=== PATIENT | female | born 1960 | race African-American/Black ===

== ENCOUNTER 2017-09-24 18:08 | Observation (INO) | payer OTHER ==
[2017-09-24] MEDS ORDERED: Morphine 4 MG/ML VIAL ONE (18:42)
[2017-09-24] MEDS ORDERED: Ondansetron HCl/PF 4 MG/2 ML Vial ONE (18:42)
[2017-09-24 18:48] LABS: Hemoglobin 12.5 g/dL (12.0-16.0); Mean Corpuscular HGB CONC 30.7 g/dL (32.0-36.0); Mean Corpuscular Hemoglobin 23.2 pg (27.0-31.0); Mean Corpuscular Volume 75.6 fL (78.0-98.0); Platelet Count 226 thou/uL (130-400); RBC Distribution Width 21.7 % (11.5-14.5); Red Blood Cell (RBC) Count 5.38 mill/uL (4.20-5.40); White Blood Cell (WBC) Count 8.7 thou/uL (4.8-10.8)
--- NOTE | 2017-09-24 19:02 | RAD ---
FRONTAL VIEW CHEST: 09/24/17 INDICATION: Chest pain. No prior comparison. FINDINGS: There is linear density at the lateral aspect of the inferior left chest which may relate to atelecta sis or parenchymal scar. The cardiac silhouette and mediastinal structures are enlarged, and accentua leatha by portable technique. There is vascular calcifications. No lobar consolidation, effusion or disc rete pneumothorax. IMPRESSION: Accentuated cardiomediastinal silhouette. Linear density of the inferolateral left hemithorax which may be related to scar or volume loss. POS: SETH
[2017-09-24 19:08] LABS: ALT (SGPT) 17 U/L (8-55); AST (SGOT) 18 U/L (5-34); Albumin 4.1 g/dL (3.5-5.0); Alkaline Phosphatase 87 U/L (40-150); Anion Gap 16 mmol/L (10-20); BUN (Urea Nitrogen) 11 mg/dL (9.8-20.1); Bilirubin, Total 0.3 mg/dL (0.2-1.2); CK (CPK) 36 U/L (29-168); Calc. Creatinine Clearance 0 mL/min (70-130); Calcium 9.5 mg/dL (7.8-10.44); Carbon Dioxide 22 mmol/L (22-29); Chloride 105 mmol/L (98-107); Estimated GFR-MDRD 75; Globulin 3.5 g/dL (2.4-3.5); Glucose 132 mg/dL (70-105); Lipase 47 U/L (8-78); Potassium 3.7 mmol/L (3.5-5.1); Protein, Total 7.6 g/dL (6.0-8.3); Sodium 139 mmol/L (136-145)
[2017-09-24 19:12] LABS: CKMB 0.5 ng/mL (0-6.6); Troponin I Less than 0.010 ng/mL (< 0.028)
[2017-09-24 19:23] LABS: #Eosinphils 0.1 thou/uL (0.0-0.7); #Monocytes 0.8 thou/uL (0.11-0.59); #Neutrophils 5.8 thou/uL (1.40-6.50); %Basophils 0.5 % (0.0-1.0); %Eosinophils 1.4 % (0.0-10.0); %Lymphocytes 22.5 % (21.0-51.0); %Monocytes 9.4 % (0.0-10.0); %Neutrophils 66.3 % (42.0-75.0); Anisocytosis SLIGHT = 6-15 cells (100X) (0-5/hpf); MDiff Complete? YES; Mean Platelet Volume 5.4 fL (7.4-10.4); Microcytosis SLIGHT = 6-15 cells (100X) (0-5/hpf); Ovalocytes SLIGHT = 2-5 cells (100X) (0-1/hpf); PLT Morphology Comment Appears Adequate; Tear Drops SLIGHT = 2-5 cells (100X) (0-1/hpf)
[2017-09-24] MEDS ORDERED: Nitroglycerin 0.4 MG TAB (25 Tab Bottle) ONE (19:39)
[2017-09-24] MEDS ORDERED: cloNIDine 0.1 MG TAB ONE (20:01)
[2017-09-24] MEDS ORDERED: Labetalol HCl 100 MG/20 ML VIAL ONE (20:01)
[2017-09-24 22:27] LABS: Troponin I Less than 0.010 ng/mL (< 0.028)
[2017-09-24] MEDS ORDERED: Ondansetron HCl/PF 4 MG/2 ML Vial IVP PRN (22:55)
[2017-09-24] MEDS ORDERED: Ondansetron ODT 4 MG TAB SL PRN (22:55)
[2017-09-24] MEDS ORDERED: Acetaminophen 325 MG TAB PO PRN (22:55)
[2017-09-24 23:08] VITALS: BMI 38.9
--- NOTE | 2017-09-25 00:01 | PDOC.EVN ---
Attending Addendum - Attending Addendum Date/Time: 09/24/17 [id number] I personally evaluated the patient and discussed the management with Dr. Medrano I agree with the History, Examination, Assessment and Plan see resident HX & PE for details. 57 yo hypertensive female with polycythema vera awoke this AM with nonexertional CP patient took catapres 0.2 and evaluated in ER with Chest Pain and hypertensive urgency. Recent right foot Thompson Neuroma surgery and Hx bilateral TKR. Positive FMHX for HD in Mother and sibling at young age. Given body habitus concerned for TITO. Will admit trend troponins and stratify for Heart Disease with stress testing. Restart home rx and consider hydralazine for BP control prn.
[2017-09-25] MEDS ORDERED: Diazepam 5 MG TAB PO SCH ×2 (00:30→09:00)
--- NOTE | 2017-09-25 00:43 | PDOC.FPRHP ---
- History of Present Illness Chief Complaint: Chest pressure History of Present Illness: 57 yo AAF with PMH of HTN, HLD, and PCV presented with intermittent chest pressure that started in the afternoon, lasting minutes each time it came. The pressure is substernal, radiated to shoulder and neck, is 10/10. The chest Pressure is worse with exertion, improved with rest. Associated with numbness down left arm and tingling in her hands, occasional blurred vision, nausea, decreased appetite. In ED, Pt refused nitro because of hx of HYLTON with nitro. BP was hard to control, systolic over 200 at one point. EKG showed NSR. CXR showed linear density of inferolateral L hemithorax, but no acute cardiopulmonary process. - Allergies/Adverse Reactions Allergies Allergy/AdvReac Type Severity Reaction Status Date / Time hydrocodone [From [place]] Allergy Hives Verified 09/24/17 23:33 iodine Allergy Hives Verified 09/24/17 23:33 nitroglycerin AdvReac Severe Headache Verified 09/24/17 23:33 - Home Medications Medication Instructions Recorded Confirmed Type Aspirin 325 mg PO DAILY 09/24/17 09/24/17 History Diazepam [Valium] 10 mg PO TID 09/24/17 09/24/17 History Hydrochlorothiazide 25 mg PO BID 09/24/17 09/24/17 History Labetalol [Normodyne] 100 mg PO TID 09/24/17 09/24/17 History Losartan [Cozaar] 100 mg PO DAILY 09/24/17 09/24/17 History Multivitamin [Multiple Vitamins] 1 each PO DAILY 09/24/17 09/24/17 History NIFEdipine [Nifedipine ER] 90 mg PO DAILY 09/24/17 09/24/17 History Spironolactone 50 mg PO DAILY 09/24/17 09/24/17 History Zolpidem Tartrate [Ambien] 12.5 mg PO HS 09/24/17 09/24/17 History oxyCODONE HCl/Acetaminophen 1 tablet PO Q4HR PRN 09/24/17 09/24/17 History [Percocet] - History PMHx: HTN, HLD, PCV, anxiety, hx of being difficult to intubate (needed blood transfusion) PSHx: appendectomy, tonsillectomy, 2 partial knee replacements bilat, rt foot surgery 1 month ago, partial hysterectomy, abdominal hernia, for twin gestation FHx: HTN (mother and father); Cancer (Gall bladder in father, aunt with kidney cancer) MT in mother @ age 54, grandmother at age 89 Social: social alcohol, denies tobacco or drug use - Review of Systems General: reports: weight/appetite/sleep changes (decreased appetite), other ( denied headache) Eyes: reports: vision changes (occasionally blurred) ENT: reports: nasal congestion. denies: rhinorrhea Respiratory: reports: shortness of breath. denies: cough, congestion Cardiovascular: reports: chest pain. denies: palpitation Gastrointestinal: reports: nausea. denies: vomiting, diarrhea, constipation, abdominal pain Skin: denies: rashes Musculoskeletal: reports: pain (knee pain, foot pain from recent surgery) Psychological: reports: anxiety (anxiety and OCD). denies: depression - Vital signs BP 182/109, P 90, R 20, T 90.2, O2 97% on RA - Physical Exam Constitutional: awake, alert and oriented, other (obese) HEENT: normocephalic and atraumatic, PERRLA, conjunctiva clear, grossly normal hearing, normal nasal mucosa, MMM Neck: supple, no LAD Chest: other (Tender to palpation) Heart: RRR, normal S1/S2, no murmurs/rubs/gallops, pulses present Lungs: CTAB, no respiratory distress, good air movement, no rales/rhonchi Abdomen: soft, bowel sounds present, no masses/distention, other (slightly TTP in left side, exam limited by size of abdomen) Musculoskeletal: normal structure, normal tone Neurological: normal sensation Skin: capillary refill <2 seconds Psychiatric: normal mood and affect, intact recent and remote memory FMR H&P: Results - Labs Result Diagrams: 09/25/17 08:47 09/25/17 08:47 Lab results: WBC 8.7 thou/uL (4.8-10.8) 09/24/17 18:31 Hgb 12.5 g/dL (12.0-16.0) 09/24/17 18:31 Hct 40.7 % (36.0-47.0) 09/24/17 18:31 MCV 75.6 fL (78.0-98.0) L 09/24/17 18:31 Plt Count 226 thou/uL (130-400) 09/24/17 18:31 Neutrophils % 66.3 % (42.0-75.0) 09/24/17 18:31 Sodium 139 mmol/L (136-145) 09/24/17 18:31 Potassium 3.7 mmol/L (3.5-5.1) 09/24/17 18:31 Chloride 105 mmol/L (98-107) 09/24/17 18:31 Carbon Dioxide 22 mmol/L (22-29) 09/24/17 18:31 BUN 11 mg/dL (9.8-20.1) 09/24/17 18:31 Creatinine 0.79 mg/dL (0.6-1.1) 09/24/17 18:31 Glucose 132 mg/dL (70-105) H 09/24/17 18:31 Calcium 9.5 mg/dL (7.8-10.44) 09/24/17 18:31 Total Bilirubin 0.3 mg/dL (0.2-1.2) 09/24/17 18:31 AST 18 U/L (5-34) 09/24/17 18:31 ALT 17 U/L (8-55) 09/24/17 18:31 Alkaline Phosphatase 87 U/L (40-150) 09/24/17 18:31 Creatine Kinase 36 U/L (29-168) 09/24/17 18:31 CK-MB (CK-2) 0.5 ng/mL (0-6.6) 09/24/17 18:31 Serum Total Protein 7.6 g/dL (6.0-8.3) 09/24/17 18:31 Albumin 4.1 g/dL (3.5-5.0) 09/24/17 18:31 Lipase 47 U/L (8-78) 09/24/17 18:31 - EKG Interpretation EKG: NSR - Radiology Interpretation Chest x-ray Additional comment: linear desnity of inferolateral L hemithorax which related to scar to scar of volume loss, FMR H&P: A/P - Problem List (1) Atypical chest pain Current Visit: Yes Status: Acute Code(s): R07.89 - OTHER CHEST PAIN (2) Hypertensive urgency Current Visit: Yes Status: Acute Code(s): I16.0 - HYPERTENSIVE URGENCY (3) HTN (hypertension) Current Visit: Yes Status: Chronic Code(s): I10 - ESSENTIAL (PRIMARY) HYPERTENSION (4) HLD (hyperlipidemia) Current Visit: Yes Status: Chronic Code(s): E78.5 - HYPERLIPIDEMIA, UNSPECIFIED (5) Polycythemia vera Current Visit: Yes Status: Chronic Code(s): D45 - POLYCYTHEMIA VERA (6) Anxiety Current Visit: Yes Status: Chronic Code(s): F41.9 - ANXIETY DISORDER, UNSPECIFIED (7) OCD (obsessive compulsive disorder) Current Visit: Yes Status: Chronic Code(s): F42.9 - OBSESSIVE-COMPULSIVE DISORDER, UNSPECIFIED - Plan 57 yo AAF with PMH of HTN, HLD, and PCV presents for Atypical chest pain. Atypical chest pain - Substernal pressure, exertional, but reproducible on exam - EKG showed NSR, Cardiac enzymes negative - Stress test and echo ordered for AM, labetalol held, NPO at midnight - Morphine for pain control Hypertensive urgency, chronic HTN - HCTZ, losartan, nifedipine, spironolactone - Pressure goal systolic <180, diastolic <110 HLD -pt is on unknown statin, so will not start one at this time PCV -consider outpt work up for TITO, possible cause for PCV Anxiety and OCD - continue diazepam from home medications, ambien for sleep - pt states she has failed outpt trials of all SSRIs for various reasons Code status: full code Pt reports she has a difficult airway- previous intubation for scheduled surgery caused laceration that required blood transfusion Dr Yancy Medrano, PGY-1 FMR H&P: Upper Level - Pertinent history 57F seen for chest pain of 1 day. She describes it as substernal, worsening through the day, associated with nausea and SOB, pressure like. There was no inciting event. Nothing has made it better or worst. In ER, she was found to have systolic BP over 200. 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 Drink alcohol socially ROS Gen: Deneis fever, chills HEENT: Denies vision change. Endorses headache CV: Endorses chest pain Resp: Denies cough, SOB GI:Denies diarrhea, constipation, abd pain Derm: Denies itch or rash. - Pertinent findings Gen: Alert, not in acute distress HEENT: Moist membrane, normocephalic CV: RRR with no appparent m/g/r Resp: CTA bilaterally GI: Normoactive, not tender to palpation Derm: No obvious rash or lesions Ext: No edema Neuro: 5/5 strength in all limb, no focal deficit Trop: Neg x3 CXR: No acute processes - Plan Date/Time: 09/25/17 0043 I, [Cole Owens], have evaluated this patient and agree with findings/plan as outlined by manufacturing engineering intern resident. Pertinent changes/additions are listed here. 1. Atypical chest pain: Patient has pain not associated with exertion and has been going on for over 1 hour. She endorses having anxiety for which she takes xanax. Plan, risk stratify with cardiac stress testing. 2 HTN urgency: Plan to add hydralazine, consider Imdur if BP remains elevated with symptoms. Goal to lower BP to no less 150 systolic today. Continue home med 3. Polycythemia vera: Known issue. Will continue to monitor. 4. Anxiety: Continue to monitor. Will continue her xanax at this time as cessation at short term can lead to withdrawal 5. Hx of knee surgery: Currently on percocet due to surgery. Will monitor pain and titrate medication for pain releif. Attending Addendum - Attending Addendum Date/Time: 09/25/17 1127 I personally evaluated the patient and discussed the management with Dr. Medrano and Dr Martinez I agree with the History, Examination, Assessment and Plan documented above with any addition or exceptions noted below. Since admit BP much improved concerned wit outpatient anxiety RX of Valium 10 TID feel patient should look for safer alternatives. Patient for stress testing this AM Blood pressure stable await result of stress testing for further recommendation. Remain concerned with body habitus for TITO and feel she would benefit further outpatient evaluation of this potential condition. Pain reproducible with palpation and appears to be musculoskeletalin nature
[2017-09-25] MEDS ORDERED: Enoxaparin Sodium 40 MG/0.4 ML SYRINGE SC SCH ×2 (01:00→21:00)
[2017-09-25] MEDS ORDERED: Morphine 4 MG/ML VIAL SLOW IVP PRN (01:01)
[2017-09-25 01:03] LABS: Troponin I Less than 0.010 ng/mL (< 0.028)
[2017-09-25 04:35] VITALS: TEMP 97.4
--- NOTE | 2017-09-25 06:27 | PDOC.FM ---
- Subjective Subjective: Still complains of chest pressure but improved with discomfort rated 7/10, alleviated with morphine. More concerned about neck and shoulder discomfort. Denies headache or feeling SOB (on NC at 3 LPM) - Objective MAR Reviewed: Yes Vital Signs & Weight: Vital Signs (12 hours) Temp Pulse Resp BP BP BP Pulse Ox 09/25/17 04:03 97.4 F L 65 14 137/77 99 09/25/17 00:38 68 22 H 114/54 L 09/24/17 23:34 97.7 F 71 16 09/24/17 22:37 97.7 F 71 16 144/68 H 99 Weight Weight 109.361 kg Result Diagrams: 09/25/17 08:47 09/25/17 08:47 Phys Exam - Physical Examination Constitutional: NAD HEENT: moist MMs Neck: supple Respiratory: no wheezing, no rhonchi, clear to auscultation bilateral Gastrointestinal: soft mildly tender to palation in LLQ chest, neck and shoulder pain reproducible and worse with palpation. tense cervical musculature, good ROM Psychiatric: normal affect, A&O x 3 Dx/Plan (1) Atypical chest pain Code(s): R07.89 - OTHER CHEST PAIN Status: Acute (2) Hypertensive urgency Code(s): I16.0 - HYPERTENSIVE URGENCY Status: Acute (3) Anxiety Code(s): F41.9 - ANXIETY DISORDER, UNSPECIFIED Status: Chronic (4) HTN (hypertension) Code(s): I10 - ESSENTIAL (PRIMARY) HYPERTENSION Status: Chronic (5) OCD (obsessive compulsive disorder) Code(s): F42.9 - OBSESSIVE-COMPULSIVE DISORDER, UNSPECIFIED Status: Chronic (6) Polycythemia vera Code(s): D45 - POLYCYTHEMIA VERA Status: Chronic - Plan Plan: 57 yo F with PMH HTN with atypical chest pain and admitted for ACS r/o 1. Atypical chest pain, ACS r/o -Tropnonins negative x3 -CK-MB negative x1 -Continue tele monitoring -Two part stress test, today will do part 1 -Echo pending 2. Chest pain, neck/shoulder pain 2/2 muscle spasm and anxiety -Started on scheduled Robaxin and Toradol -Will give IV Toradol 30mg IV x1 now 2. HTN urgency -BP now 114/ 56, controlled and stable -Was given clonidine x1 & labetalol x1 -Continue home nifedipine, Losartan, HCTZ, Spironolactone & monitor BPs to goal <140 3. History of polycythemia vera possibly 2/2 TITO -Will continue to monitor 4. Anxiety - Continue home valium -Plan to discuss with patient reason why taking valium and possibly transitioning to klonipin ppx: lovenox diet: NPO at midnight Dispo: Keep overnight due to two part stress test. D/c if cardiac w/u is negative. Plan was discussed with Dr. Bellamy
[2017-09-25] MEDS ORDERED: Spironolactone 25 MG TAB PO SCH (08:00)
[2017-09-25] MEDS ORDERED: Losartan 25 MG TAB PO SCH (09:00)
[2017-09-25] MEDS ORDERED: Aspirin 325 MG TAB PO SCH (09:00)
[2017-09-25] MEDS ORDERED: Hydrochlorothiazide 25 MG TAB PO SCH (09:00)
[2017-09-25] MEDS ORDERED: Multivitamin W/ Minerals 1 TAB PO SCH (09:00)
[2017-09-25] MEDS ORDERED: NIFEdipine XL 90 MG TAB PO SCH (09:00)
[2017-09-25 09:11] LABS: #Basophils 0.1 thou/uL (0.0-0.2); #Eosinphils 0.2 thou/uL (0.0-0.7); #Monocytes 0.8 thou/uL (0.11-0.59); #Neutrophils 4.9 thou/uL (1.40-6.50); %Lymphocytes 25.7 % (21.0-51.0); %Monocytes 9.5 % (0.0-10.0); %Neutrophils 61.8 % (42.0-75.0); Anisocytosis SLIGHT = 6-15 cells (100X) (0-5/hpf); Hemoglobin 11.4 g/dL (12.0-16.0); MDiff Complete? YES; Mean Corpuscular HGB CONC 30.4 g/dL (32.0-36.0); Mean Corpuscular Volume 75.8 fL (78.0-98.0); Microcytosis SLIGHT = 6-15 cells (100X) (0-5/hpf); PLT Morphology Comment Appears Adequate; Platelet Count 182 thou/uL (130-400); RBC Distribution Width 21.4 % (11.5-14.5); Red Blood Cell (RBC) Count 4.96 mill/uL (4.20-5.40); White Blood Cell (WBC) Count 7.9 thou/uL (4.8-10.8)
[2017-09-25 09:18] LABS: ALT (SGPT) 13 U/L (8-55); AST (SGOT) 9 U/L (5-34); Albumin 3.7 g/dL (3.5-5.0); Alkaline Phosphatase 75 U/L (40-150); Anion Gap 13 mmol/L (10-20); BUN (Urea Nitrogen) 9 mg/dL (9.8-20.1); Bilirubin, Total 0.3 mg/dL (0.2-1.2); Calc. Creatinine Clearance 159 mL/min (70-130); Calcium 8.9 mg/dL (7.8-10.44); Carbon Dioxide 25 mmol/L (22-29); Chloride 105 mmol/L (98-107); Estimated GFR-MDRD Greater than 90; Globulin 2.8 g/dL (2.4-3.5); Glucose 111 mg/dL (70-105); Potassium 3.3 mmol/L (3.5-5.1); Protein, Total 6.5 g/dL (6.0-8.3); Sodium 140 mmol/L (136-145)
[2017-09-25] MEDS ORDERED: ADENOSINE 60 MG/20 ML VIAL ONE (09:57)
[2017-09-25] MEDS ORDERED: Ibuprofen 600 MG TAB PO PRN (10:33)
[2017-09-25] MEDS ORDERED: Methocarbamol 500 MG TAB PO PRN (10:35)
[2017-09-25] MEDS ORDERED: Methocarbamol 500 MG TAB PO SCH ×2 (10:46→13:00)
[2017-09-25] MEDS ORDERED: Ibuprofen 600 MG TAB PO SCH (11:00)
[2017-09-25] MEDS ORDERED: Ketorolac Tromethamine 30 MG/ML VIAL IVP SCH (11:30)
[2017-09-25] MEDS ORDERED: Ketorolac Tromethamine 10 MG TAB PO SCH ×2 (12:00→18:00)
[2017-09-25 12:07] VITALS: BP 139/100
--- NOTE | 2017-09-25 15:10 | NM ---
NUCLEAR MEDICINE CARDIAC STRESS TEST WITH EJECTION FRACTION SINGLE DAY: HISTORY: Chest pain. COMPARISON: None. TECHNIQUE: Stress only performed after the intravenous administration of 28.3 mCi technetium-99m sestamibi. Exam was performed using Adenosine protocol. There were no EKG changes. FINDINGS: Adequate left ventricular uptake of radiotracer. No focal abnormal area of uptake to suggest a scar o r ischemia. Wall motion is normal. Calculated ejection fraction is 61%. IMPRESSION: Normal exam. POS: SETH
[2017-09-25] MEDS ORDERED: Zolpidem Tartrate 5 MG TAB PO SCH (21:00)
--- NOTE | 2017-09-26 01:19 | DIS-2 ---
DATE OF ADMISSION: 09/24/2017 DATE OF DISCHARGE: 09/25/2017 RESIDENT: Tierney Martinez MD ADMITTING ATTENDING: Dr. Everette Bellamy. DISCHARGE ATTENDING: Dr. Everette Bellamy. CONSULTATIONS: None. PROCEDURES: Nuclear stress test, part 1. PRIMARY DIAGNOSES: Atypical chest pain secondary to musculoskeletal etiology, hypertensive urgency. SECONDARY DIAGNOSES: 1. Hypertension, hyperlipidemia 2. Polycythemia vera, likely secondary to unspecified chronic lung condition 3. Anxiety 4. Obsessive compulsive disorder. DISCHARGE MEDICATIONS: 1. Robaxin 500 mg p.o. q.i.d. 2. Toradol 10 mg p.o. q.6 hours. 3. Aspirin 325 mg p.o. daily. 4. Ambien 12.5 mg p.o. at bedtime. 5. Multivitamin 1 tablet p.o. daily. 6. Percocet 1 tab p.o. q.4 hours p.r.n., pain. 7. Labetalol 100 mg p.o. t.i.d. 8. Valium 10 mg p.o. t.i.d. 9. Spironolactone 50 mg p.o. daily. HOSPITAL COURSE: Ms. Licona was admitted for ACS rule out due to atypical chest pain and presence of pertinent risk factors and for hypertensive urgency. Nuclear stress test showed normal wall motion with ejection fraction of 61%, no EKG changes and no evidence of cardiac scar or ischemia, overall normal exam. Cardiac enzymes were negative. Telemetry monitoring was uneventful. Due to reproducibility of chest pain and primary complaint of upper shoulder occipital cervicogenic tightness, etiology was thought to be more musculoskeletal in nature and patient was started on Toradol and Robaxin. BPs remained stable on home meds during hospital course. DISPOSITION: Stable. DISCHARGE INSTRUCTIONS: 1. Location: Home. 2. Diet: Regular diet. 3. Activity: Ad hakan. FOLLOWUP: Please follow up with PCP in 7-10 days. CLEO
--- NOTE | 2017-09-27 14:03 | STRESS ---
Acquisition Time: 2017-09-25 09:51:33 Total Exercise Time: 00:04:00 Test Indications: CHEST PAIN Medications: Protocol: ADENOSINE Max HR: 090 BPM 54% of Pred: 164 BPM Max BP: 158/086 mmHG Max Work Load: 1.0 METS RESTING ECG: SINUS BRADYCARDIA WITH NON-SPECIFIC T-WAVE CHANGES SYMPTOMS: DYSPNEA ON EXERTION NORMAL BP RESPONSE ECTOPY: NONE ECG STRESS: NO SIGNIFICANT CHANGES INTERPRETATION: AWAIT NUCLEAR IMAGES FOR DEFINITIVE DIAGNOSIS Confirmed by MALISSA HENDERSON ([id number]), writer editor AKI BOND ([id number]) on 09/27/2017 2:02:11 PM Referred By: MD Ginny CORRAL Confirmed By:MALISSA HENDERSON
== END 2017-09-25 15:36 | disposition home or self-care (01) ==
LOC: ERS 18:08 → 2SW 20:00
PROVIDERS: ADMIT Family Medicine; ATTEND Family Medicine
DX: R07.89 Other chest pain (principal); I16.0 Hypertensive urgency; I10 Essential (primary) hypertension; E78.5 Hyperlipidemia, unspecified; D45 Polycythemia vera; F41.9 Anxiety disorder, unspecified; R46.81 Obsessive-compulsive behavior; Z79.82 Long term (current) use of aspirin; Z79.899 Other long term (current) drug therapy
CPT/HCPCS: 36415; 71045; 78452; 80053; 82550; 82553; 83690; 84484; 85025; 93005; 93017; 96372; 96374; 96375; 96376; A9500; G0378; J0153; J1650; J1885; J2270; J2405; Q0162